=== PATIENT | male | born 1950 | race Caucasian/White ===

== ENCOUNTER → 2020-01-06 08:47 | Outpatient (BNVA) | payer MEDICARE, OTHER, SELFPAY | PROVIDERS: Family Provider Family Medicine; PCP Family Medicine; Visit Provider Urology | DX: N47.1 Phimosis (principal) | CPT/HCPCS: 88305 ==

== ENCOUNTER → 2020-07-06 10:16 | Outpatient (BNVA) | payer MEDICARE, OTHER, SELFPAY | PROVIDERS: Family Provider Family Medicine; PCP Family Medicine; Visit Provider Urology | DX: N40.1 Benign prostatic hyperplasia with lower urinary tract symptoms (principal); N47.1 Phimosis; N52.1 Erectile dysfunction due to diseases classified elsewhere | CPT/HCPCS: 81001 ==

== ENCOUNTER → 2022-11-17 09:48 | Outpatient (BNVA) | payer MEDICARE, OTHER, SELFPAY | PROVIDERS: Family Provider Family Medicine; PCP Family Medicine; Visit Provider Family Medicine | DX: Z00.00 Encounter for general adult medical examination without abnormal findings (principal); I10 Essential (primary) hypertension; D56.5 Hemoglobin E-beta thalassemia; R73.09 Other abnormal glucose | CPT/HCPCS: 80053; 80061; 83036 ==

== ENCOUNTER 2023-01-12 11:58 | Outpatient (CLI) | payer MEDICARE, OTHER, SELFPAY ==
--- NOTE | 2023-01-12 12:19 | XR_ITS ---
WS: [id number] Left knee, 2 views, 01/12/2023 Clinical Data: knee pain Comparison: None. Findings: No fractures or dislocations are seen. The medial joint compartment is minimally narrow. The patella is intact and bipartite. The soft tissues are unremarkable. XR/XR knee LT 1-2V 31008 Impression: Minimal osteoarthritis with medial joint compartment narrowing. Kellgren-Guanaco Classification: grade 1 (doubtful): doubtful joint space narr owing and possible osteophytic lipping
--- NOTE | 2023-01-12 12:19 | XR_ITS ---
WS: [id number] Right knee, 2 views, 01/12/2023 Clinical Data: knee pain Comparison: None. Findings: No fractures or dislocations are seen. There is narrowing of the lateral joint compartment with a sma ll spur of the lateral tibial plateau.. There is minimal posterior patellar spur with a large anterio r superior spur. The soft tissues are unremarkable. XR/XR knee RT 1-2V 49948 Impression: Mild osteoarthritis of right knee. Kellgren-Guanaco Classification: grade 2 (minimal): definite osteophytes and p ossible joint space narrowing
== END 2023-01-12 11:59 | disposition home or self-care (01) ==
PROVIDERS: PCP Family Medicine; Visit Provider Family Medicine
DX: M17.0 Bilateral primary osteoarthritis of knee (principal)
CPT/HCPCS: 73560

== ENCOUNTER 2023-01-26 09:47 | Outpatient (CLI) | payer MEDICARE, OTHER, SELFPAY ==
[2023-01-26 10:42] LABS: Creatine Phosphokinase 246 U/L (39-308)
[2023-01-26 10:47] LABS: Erythrocyte Sedimentation Rate 18 mm/hr (0-10)
[2023-01-26 11:10] LABS: CKMB 5.3 ng/mL (0-10.4)
== END 2023-01-26 09:48 | disposition home or self-care (01) ==
LOC: LAB 09:52
PROVIDERS: PCP Family Medicine; Visit Provider Emergency Medicine
DX: M79.10 Myalgia, unspecified site (principal); M25.462 Effusion, left knee; M25.461 Effusion, right knee
CPT/HCPCS: 36415; 82550; 82553; 85651; 86140; 86431

== ENCOUNTER 2023-03-09 06:00 | Outpatient (RCR) | payer MEDICARE, OTHER, SELFPAY | END 2023-04-05 23:59 | disposition home or self-care (01) | LOC: SPT 06:00 | PROVIDERS: Visit Provider Student in an Organized Health Care Education/Training Program | DX: M17.11 Unilateral primary osteoarthritis, right knee (principal) | CPT/HCPCS: 97110; 97161 ==

== ENCOUNTER 2023-04-06 06:00 | Outpatient (RCR) | payer MEDICARE, OTHER, SELFPAY | END 2023-05-05 23:59 | disposition home or self-care (01) | LOC: SPT 06:00 | PROVIDERS: Visit Provider Student in an Organized Health Care Education/Training Program | DX: M17.11 Unilateral primary osteoarthritis, right knee (principal); Z96.651 Presence of right artificial knee joint | CPT/HCPCS: 97110 ==

== ENCOUNTER 2023-05-06 06:00 | Outpatient (RCR) | payer MEDICARE, OTHER, SELFPAY | END 2023-06-05 23:59 | disposition home or self-care (01) | LOC: SPT 06:00 | PROVIDERS: Visit Provider Student in an Organized Health Care Education/Training Program | DX: M17.11 Unilateral primary osteoarthritis, right knee (principal); Z96.651 Presence of right artificial knee joint | CPT/HCPCS: 97110 ==

== ENCOUNTER → 2023-07-14 08:17 | Outpatient (BNVA) | payer MEDICARE, OTHER, SELFPAY | PROVIDERS: PCP Family Medicine; Visit Provider Family Medicine | DX: I10 Essential (primary) hypertension (principal); Z00.00 Encounter for general adult medical examination without abnormal findings; Z13.6 Encounter for screening for cardiovascular disorders; Z13.1 Encounter for screening for diabetes mellitus | CPT/HCPCS: 80053; 80061; 83036; 85025 ==